=== PATIENT | male | born 1955 | race Caucasian/White ===

== ENCOUNTER 2020-12-30 14:07 | Inpatient (IN) | payer BC ==
[2020-12-30] MEDS ORDERED: Iopamidol 370 76% 100 ML VIAL ONE ×3 (14:35)
[2020-12-30] MEDS ORDERED: Iopamidol 370 76% 50 ML VIAL FS ONE (14:35)
[2020-12-30] MEDS ORDERED: traMADol HCl 50 MG TAB PO PRN (14:55)
[2020-12-30] MEDS ORDERED: Acetaminophen/Codeine 30-300mg Tablet PO PRN (14:55)
[2020-12-30] MEDS ORDERED: Sodium Chloride 0.9% 1,000 ML IV SCH ×2 (15:00→18:00)
[2020-12-30] MEDS ORDERED: Nitroglycerin 0.4 MG TAB (25 Tab Bottle) ONE (16:24)
[2020-12-30] MEDS ORDERED: Lidocaine 1% (PF) 30 ML VIAL ONE (16:37)
[2020-12-30] MEDS ORDERED: Verapamil 5 MG/2 ML VIAL ONE (16:56)
[2020-12-30] MEDS ORDERED: Adenosine 6 MG/2 ML VIAL ONE (16:56)
[2020-12-30] MEDS ORDERED: Nitroglycerin 100MG/250ML BOT 250 ML ONE (16:56)
[2020-12-30] MEDS ORDERED: Ondansetron PF 4 MG/2 ML Vial ONE (16:56)
[2020-12-30] MEDS ORDERED: Heparin 10,000 UNITS/ 10 ML VIAL ONE (17:11)
[2020-12-30] MEDS ORDERED: Aggrastat 12.5 MG/250 ML 250 ML ONE (17:11)
[2020-12-30] MEDS ORDERED: Atropine Sulfate 1 mg/10 ml Syringe ONE (17:12)
[2020-12-30] MEDS ORDERED: Aggrastat 12.5 MG/250 ML 250 ML IVPB SCH (18:00)
[2020-12-30] MEDS ORDERED: Nitroglycerin 50 MG/250 ML BOT 250 ML ONE (18:45)
[2020-12-30] MEDS ORDERED: Nitroglycerin 50 MG/250 ML BOT 250 ML IVPB SCH (19:00)
[2020-12-30] MEDS: Atorvastatin Calcium 40 MG TAB PO SCH (20:50)
[2020-12-30] MEDS ORDERED: Atorvastatin Calcium 40 MG TAB PO SCH (21:00)
[2020-12-30 22:26] LABS: Troponin I 62.173 ng/mL (< 0.028)
[2020-12-31 05:57] LABS: #Eosinphils 0.1 thou/uL (0.0-0.7); #Lymphocytes 2.1 thou/uL (1.20-3.40); #Neutrophils 7.8 thou/uL (1.40-6.50); %Basophils 0.4 % (0.0-1.0); %Eosinophils 0.5 % (0.0-10.0); %Monocytes 9.2 % (0.0-10.0); %Neutrophils 70.9 % (42.0-75.0); Hemoglobin 15.4 g/dL (14.0-18.0); Mean Corpuscular HGB CONC 34.1 g/dL (32.0-36.0); Mean Corpuscular Volume 99.9 fL (78.0-98.0); Mean Platelet Volume 6.8 fL (7.4-10.4); Platelet Count 177 thou/uL (130-400); RBC Distribution Width 11.6 % (11.5-14.5); Red Blood Cell (RBC) Count 4.54 mill/uL (4.70-6.10); White Blood Cell (WBC) Count 11.1 thou/uL (4.8-10.8)
[2020-12-31 06:19] LABS: ALT (SGPT) 71 U/L (8-55); AST (SGOT) 199 U/L (5-34); Albumin 3.5 g/dL (3.4-4.8); Alkaline Phosphatase 52 U/L (40-110); Anion Gap 11 mmol/L (10-20); BUN (Urea Nitrogen) 13 mg/dL (8.4-25.7); Bilirubin, Total 0.8 mg/dL (0.2-1.2); Calc. Creatinine Clearance 0 mL/min (70-130); Calcium 8.6 mg/dL (7.8-10.44); Carbon Dioxide 27 mmol/L (23-31); Chloride 107 mmol/L (98-107); Globulin 2.8 g/dL (2.4-3.5); Glucose 131 mg/dL (80-115); Potassium 4.5 mmol/L (3.5-5.1); Protein, Total 6.3 g/dL (5.8-8.1); Sodium 140 mmol/L (136-145)
[2020-12-31] MEDS: Aspirin Chewable 81 MG TAB PO SCH (08:14)
[2020-12-31] MEDS: Clopidogrel Bisulfate 75 MG TAB PO SCH (08:14)
[2020-12-31] MEDS ORDERED: Aspirin Chewable 81 MG TAB PO SCH (09:00)
[2020-12-31] MEDS ORDERED: Clopidogrel Bisulfate 75 MG TAB PO SCH (09:00)
[2020-12-31 14:14] LABS: Hemoglobin A1c 5.7 % (4.0-6.0)
[2020-12-31 20:42] VITALS: BMI 30.7
[2020-12-31] MEDS: Atorvastatin Calcium 40 MG TAB PO SCH (20:49)
[2021-01-01] MEDS: Clopidogrel Bisulfate 75 MG TAB PO SCH (09:25)
[2021-01-01] MEDS: Aspirin Chewable 81 MG TAB PO SCH (09:25)
[2021-01-01] MEDS: Carvedilol 3.125 MG TAB PO SCH (17:09)
[2021-01-01] MEDS: Atorvastatin Calcium 40 MG TAB PO SCH (20:24)
[2021-01-02 08:09] VITALS: TEMP 98.7
[2021-01-02] MEDS: Clopidogrel Bisulfate 75 MG TAB PO SCH (08:10)
[2021-01-02] MEDS: Carvedilol 3.125 MG TAB PO SCH (08:10)
[2021-01-02] MEDS: Aspirin Chewable 81 MG TAB PO SCH (08:10)
[2021-01-02 16:20] VITALS: BP 147/80
[2021-01-02 21:35] LABS: SARS-CoV-2 PCR NAA for Saliva Not Detected (NotDetected)
== END 2021-01-02 16:35 | disposition home or self-care (01) | DRG 246 ==
LOC: ERS 14:07 → SDC 14:11 → CCU 14:11 → 2NO 12-31 18:58
PROVIDERS: ADMIT Internal Medicine Cardiovascular Disease; ATTEND Internal Medicine Cardiovascular Disease
PROC: 027034Z Dilation of Coronary Artery, One Artery with Drug-eluting Intraluminal Device, Percutaneous Approach (ICD-10-PCS; principal; 2020-12-30)
PROC: 02C03ZZ Extirpation of Matter from Coronary Artery, One Artery, Percutaneous Approach (ICD-10-PCS; 2020-12-30)
PROC: 02703DZ Dilation of Coronary Artery, One Artery with Intraluminal Device, Percutaneous Approach (ICD-10-PCS; 2020-12-30)
PROC: 02C03ZZ Extirpation of Matter from Coronary Artery, One Artery, Percutaneous Approach (ICD-10-PCS; 2020-12-30)
PROC: 4A023N7 Measurement of Cardiac Sampling and Pressure, Left Heart, Percutaneous Approach (ICD-10-PCS; 2020-12-30)
PROC: B2111ZZ Fluoroscopy of Multiple Coronary Arteries using Low Osmolar Contrast (ICD-10-PCS; 2020-12-30)
PROC: B240ZZ3 Ultrasonography of Single Coronary Artery, Intravascular (ICD-10-PCS; 2020-12-30)
PROC: 3E0 Administration, Physiological Systems and Anatomical Regions, Introduction (ICD-10-PCS; 2020-12-30)
DX: I21.3 ST elevation (STEMI) myocardial infarction of unspecified site (principal); I25.42 Coronary artery dissection; T82.867A Thrombosis due to cardiac prosthetic devices, implants and grafts, initial encounter; Y83.8 Other surgical procedures as the cause of abnormal reaction of the patient, or of later complication, without mention of misadventure at the time of the procedure; E78.5 Hyperlipidemia, unspecified; I25.10 Atherosclerotic heart disease of native coronary artery without angina pectoris; Z20.822 Contact with and (suspected) exposure to COVID-19; I48.91 Unspecified atrial fibrillation; R73.9 Hyperglycemia, unspecified
CPT/HCPCS: 36415; 76942; 80053; 83036; 84484; 85025; 85347; 87635; 92941; 92977; 92978; 93005; 93010; 93306; 93454; 93458; 93798; C1753; C1757; C1876; C9606; J0153; J0461; J1644; J2001; J2405; J3246; Q9967; U0003; U0005